=== PATIENT | female | born 1945 | race Caucasian/White ===

== ENCOUNTER → 2020-12-11 | Outpatient (CLI) | payer BC ==
[~2020-12-11] MED LIST: CALCIUM PO; MULT-449 PO; PANT20TA4 PO; PROP10DR3 EACHEYE; SERT100T32 PO; Vitamin C PO; ZINC PO; fibercon PO; triamcinolone BC
[2020-12-11 10:28] LABS: ANION GAP 3 mmol/L (5-15); CALCIUM 9.1 mg/dL (8.5-10.1); CHLORIDE 107 mmol/L (98-107)
[2020-12-11 10:29] LABS: CREATININE 0.66 mg/dL (0.55-1.02); INTERNATIONAL NORMALIZED RATIO 1.03 (0.93-1.1)
[2020-12-11 12:50] LABS: BASOPHILS % (AUTO) 0 % (0-1); EOSINOPHILS % (AUTO) 2 % (1-7); LYMPHOCYTES % (AUTO) 17 % (22-44); MEAN CORPUSCULAR HEMOGLOBIN 33.1 pg (27.0-34.8); MEAN CORPUSCULAR HGB CONC 34.5 g/dL (32.4-35.8); MEAN PLATELET VOLUME 11.6 fL (7.4-10.4); MONOCYTES % (AUTO) 7 % (2-9); NEUTROPHILS % (AUTO) 73 % (42-75); PLATELET COUNT 95 x10^3/uL (130-400); RED BLOOD COUNT 4.13 x10^6/uL (3.82-5.3); RED CELL DISTRIBUTION WIDTH 13.1 % (9.6-15.2)
== END | disposition home or self-care (01) ==
LOC: STAR 08:59
PROVIDERS: ATTEND Orthopaedic Surgery
DX: Z01.812 Encounter for preprocedural laboratory examination (principal); Z20.822 Contact with and (suspected) exposure to COVID-19; M17.11 Unilateral primary osteoarthritis, right knee
CPT/HCPCS: 36415; 80048; 83036; 85025; 85610; 85730; 87081; 87806; 93005; U0003; U0005; 87147; G0475

== ENCOUNTER 2020-12-17 05:49 | Day surgery (SDC) | payer BC, MEDICARE ==
[2020-12-11 10:02] VITALS: BP 158/85
[~2020-12-17] VITALS: Ht 157.5 cm; Wt 60.9 kg
[2020-12-17] MEDS ORDERED: LACTATED RINGERS 1,000 ML IV SCH (06:30)
[2020-12-17] MEDS ORDERED: CHLORHEXIDINE 15 ML UDC PO ONE (06:30)
[2020-12-17] MEDS ORDERED: ACETAMINOPHEN 500 MG TABLET PO ONE (07:00)
[2020-12-17] MEDS ORDERED: GABAPENTIN 300 MG CAPSULE PO ONE (07:00)
[2020-12-17] MEDS ORDERED: VANCOMYCIN 1,000 MG ONE (07:12)
[2020-12-17] MEDS ORDERED: TRANEXAMIC ACID 100 MG/ML, 10ML ONE (07:12)
[2020-12-17] MEDS ORDERED: KETOROLAC 60 MG/2 ML ONE (07:12)
[2020-12-17] MEDS ORDERED: EPINEPHRINE 1 MG/ML, 1ML ONE (07:12)
[2020-12-17] MEDS ORDERED: ROPIvacaine/PF 0.2%, 20 ML ONE ×2 (07:12→07:49)
[2020-12-17] MEDS ORDERED: MIDAZOLAM 1 MG/ML, 2ML ONE (07:44)
[2020-12-17] MEDS ORDERED: FENTANYL PF 250 MCG/5ML ONE (07:45)
[2020-12-17] MEDS ORDERED: LABETALOL 5MG/ML, 20ML IV PRN (08:30)
[2020-12-17] MEDS ORDERED: PSYLLIUM PACKET PO PRN (08:30)
[2020-12-17] MEDS ORDERED: ONDANSETRON 2MG/ML, 2ML IVPush PRN (08:30)
[2020-12-17] MEDS ORDERED: SENNA/DOCUSATE TABLET PO PRN (08:30)
[2020-12-17] MEDS ORDERED: PROMETHAZINE 25 MG/ML, 1ML IVPush PRN (08:30)
[2020-12-17] MEDS ORDERED: ACETAMINOPHEN 650 MG/20.3 ML UDC PO PRN (08:30)
[2020-12-17] MEDS ORDERED: OXYcodone 5 MG/5 ML ORAL.SOL UDC PO PRN (08:30)
[2020-12-17] MEDS ORDERED: POLYETHYLENE GLYCOL 17 GM PACKET PO PRN (08:30)
[2020-12-17] MEDS ORDERED: ACETAMINOPHEN 325 MG TABLET PO PRN (08:30)
[2020-12-17] MEDS ORDERED: FENTANYL PF 100 MCG/2ML IV PRN (08:30)
[2020-12-17] MEDS ORDERED: MAGNESIUM HYDROXIDE 8%, 30ML UDC PO PRN (08:30)
[2020-12-17] MEDS ORDERED: MEPERIDINE/PF 25MG/0.5ML IVPush PRN (08:30)
[2020-12-17] MEDS ORDERED: ONDANSETRON 4 MG TABLET PO PRN (08:30)
[2020-12-17] MEDS ORDERED: HYDROmorphone 1 MG/ML, 1ML INJ IVPush PRN ×2 (08:30)
[2020-12-17] MEDS ORDERED: OXYcodone IR 5MG TABLET PO PRN (08:30)
[2020-12-17] MEDS ORDERED: ALUMINUM/MAG/SIMETHICONE 30 ML UDC PO PRN (08:30)
[2020-12-17] MEDS ORDERED: METOCLOPRAMIDE 5 MG/ML, 2ML IVPush PRN (08:30)
[2020-12-17] MEDS ORDERED: DIPHENHYDRAMINE 50 MG/ML, 1ML IVPush PRN (08:30)
[2020-12-17] MEDS ORDERED: MIDAZOLAM 1 MG/ML, 2ML IV PRN (08:30)
[2020-12-17] MEDS ORDERED: ROPIvacaine/PF 0.2%, 20 ML INFIL ONE (08:37)
[2020-12-17] MEDS ORDERED: KETOROLAC 60 MG/2 ML INFIL ONE (08:38)
[2020-12-17] MEDS ORDERED: EPINEPHRINE 1 MG/ML, 1ML INFIL ONE (08:39)
[2020-12-17] MEDS ORDERED: TAMSULOSIN 0.4 MG CAP.ER.24H PO SCH (09:00)
[2020-12-17] MEDS ORDERED: ROPIvacaine/PF 0.2%, 100ML 550 ML (check volume) INJ ONE (09:00)
[2020-12-17] MEDS ORDERED: DOCUSATE 100 MG CAPSULE PO SCH (09:00)
[2020-12-17] MEDS ORDERED: ONDANSETRON 2MG/ML, 2ML ONE (09:08)
[2020-12-17] MEDS ORDERED: LIDOCAINE-MPF 2% ,5ML ONE (09:08)
[2020-12-17] MEDS ORDERED: CEFAZOLIN 1,000 MG ONE (09:08)
[2020-12-17] MEDS ORDERED: DEXAMETHASONE 4 MG/ML, 1ML ONE (09:08)
[2020-12-17] MEDS ORDERED: PROPOFOL 10 MG/ML, 20ML ONE (09:08)
[2020-12-17] MEDS ORDERED: BUPIVACAINE/PF 0.5% ONE (09:08)
[2020-12-17] MEDS ORDERED: TRANEXAMIC ACID 1,000 MG in SODIUM CHLORIDE 0.9% 100 ML IVPB ONE (09:30)
[2020-12-17] MEDS ORDERED: POTASSIUM CHLORIDE 20 MEQ in D5%-0.45% NACL 1,000 ML IV SCH (16:29)
[2020-12-17] MEDS ORDERED: CEFAZOLIN PMX 1GM/50ML 50 ML IVPB SCH (16:30)
[2020-12-17] MEDS ORDERED: KETOROLAC 30 MG/1 ML IV SCH (16:30)
[2020-12-17] MEDS ORDERED: DIPHENHYDRAMINE 25 MG CAPSULE PO PRN (17:00)
[2020-12-18] MEDS ORDERED: DEXAMETHASONE 4 MG/ML, 1ML IVPush ONE (06:00)
[2020-12-18] MEDS ORDERED: ASPIRIN 81 MG TABLET EC PO SCH (18:00)
== END 2020-12-17 13:30 | disposition home or self-care (01) ==
LOC: OUT 05:49 → UNDOADMOB 08:14 → ORIP 08:14
PROVIDERS: ATTEND Orthopaedic Surgery
DX: M17.11 Unilateral primary osteoarthritis, right knee (principal); M25.761 Osteophyte, right knee; M25.561 Pain in right knee; K21.9 Gastro-esophageal reflux disease without esophagitis; Z79.899 Other long term (current) drug therapy
CPT/HCPCS: 27447; 64447; 73560; 97163; C1776; J0171; J0690; J1100; J1885; J2250; J2405; J2704; J2795; J3010; J3370; J7120